=== PATIENT | female | born 2000 | race Caucasian/White ===

== ENCOUNTER 2020-06-18 18:39 | Emergency (ER) | payer BC ==
[2020-06-18] MEDS ORDERED: Ondansetron 4 MG/2 ML SDV IVPUSH ONE ×2 (19:02→20:51)
[2020-06-18] MEDS ORDERED: Sodium Chloride 0.9% 1,000 ML IV ONE (19:03)
[2020-06-18 19:30] LABS: ANION GAP 12.1 mmol/L (5-15); CHLORIDE,CL 102 mmol/L (98-107); SODIUM,NA 138 mmol/L (136-145)
[2020-06-18] MEDS ORDERED: HYDROmorphone 1 MG/ML Syringe IVPUSH ONE (19:54)
[2020-06-18] MEDS ORDERED: Clindamycin Phosphate 900 MG/6 ML SDV IV ONE (20:13)
[2020-06-18] MEDS ORDERED: Iopamidol 755 Mg/ML 75 ML Bottle IVPUSH ONE (20:40)
--- NOTE | 2020-06-18 20:41 | EDM.PDOC ---
ED HPI GENERAL MEDICAL PROBLEM - General Chief Complaint: Gastrointestinal Problem Stated Complaint: FEVER/VOMITING Time Seen by Provider: 06/18/20 18:45 Source of Information: Reports: Patient History Limitations: Reports: No Limitations - History of Present Illness INITIAL COMMENTS - FREE TEXT/NARRATIVE: 20-year-old female presents to the emergency room brought in by her mother this evening with complaints of upper abdominal pain, nausea and vomiting. Symptoms have started over the last 48 hours with nausea and vomiting beginning last night and then throughout today. She feels like she is getting no worse. They believe she had run a low-grade fever of 101. They have been treating this with Tylenol and ibuprofen. She describes abdominal pain as a constant ache referred from the right upper quadrant and radiating to the epigastric region. She is otherwise been very healthy. No prior history of abdominal surgery. No medications. Onset: Gradual Onset Date: 06/16/20 Duration: Day(s):, Getting Worse Location: Reports: Abdomen Quality: Reports: Ache Severity: Moderate Improves with: Reports: None Worsens with: Reports: None Associated Symptoms: Reports: Fever/Chills, Nausea/Vomiting Treatments BALANCE WHEEL [employer] FILER: Reports: Acetaminophen, NSAIDS, Other (see below) Middle Abdomen Pain Score (Numeric/FACES): 4 - Related Data Allergies Allergy/AdvReac Type Severity Reaction Status Date / Time Sulfa (Sulfonamide Allergy Mild Cannot Verified 06/18/20 18:55 Antibiotics) Remember amoxicillin Allergy Swollen Verified 06/18/20 18:55 Tongue Home Meds: Home Meds Acetaminophen [Tylenol] 325 mg PO Q4H PRN 06/13/18 [History] Ibuprofen [Ibuprofen Ib] 200 mg PO TID 06/18/20 [History] Past Medical History BREAKFAST HOST History: Reports: Other (See Below) Other BREAKFAST HOST History: pain full menses - will pass out from pain at times - Past Surgical History HEENT Surgical History: Reports: Adenoidectomy, Oral Surgery, Tonsillectomy Social & Family History - Family History Family Medical History: Unobtainable - Tobacco Use Tobacco Use Status *Q: Never Tobacco User - Caffeine Use Caffeine Use: Reports: Coffee, Energy Drinks, Soda Other Caffeine Use: 1 per day - Recreational Drug Use Recreational Drug Use: No ED ROS GENERAL - Review of Systems Review Of Systems: See Below Constitutional: Reports: Fever, Decreased Appetite HEENT: Reports: No Symptoms Respiratory: Reports: No Symptoms Cardiovascular: Reports: No Symptoms Endocrine: Reports: No Symptoms GI/Abdominal: Reports: Abdominal Pain, Diarrhea, Nausea, Vomiting : Denies: Dysuria, Flank Pain, Hematuria, Pain, Urgency Musculoskeletal: Reports: No Symptoms Skin: Reports: No Symptoms Neurological: Reports: No Symptoms ED EXAM, GI/ABD - Physical Exam Exam: See Below Exam Limited By: No Limitations General Appearance: Alert, WD/WN, Mild Distress Eyes: Bilateral: Normal Appearance, EOMI Ears: Hearing Grossly Normal, Normal TMs Nose: Normal Inspection, Normal Mucosa, No Blood Throat/Mouth: Normal Inspection, Normal Lips, Normal Teeth, Normal Oropharynx, Normal Voice, No Airway Compromise Head: Atraumatic, Normocephalic Neck: Normal Inspection, Supple, Non-Tender, Full Range of Motion. No: Lymphadenopathy (L), Lymphadenopathy (R) Respiratory/Chest: No Respiratory Distress, Lungs Clear, Normal Breath Sounds, No Accessory Muscle Use, Chest Non-Tender Cardiovascular: Normal Peripheral Pulses, Regular Rate, Rhythm, No Murmur GI/Abdominal Exam: No Organomegaly, No Distention, No Abnormal Bruit, No Mass, Pelvis Stable, Rebound, Tender, Other (+ [place]) Back Exam: Normal Inspection, Full Range of Motion Extremities: Normal Inspection, Normal Range of Motion, Non-Tender, No Pedal Edema, Normal Capillary Refill Neurological: Alert, Oriented, CN II-XII Intact, No Motor/Sensory Deficits Psychiatric: Normal Affect, Normal Mood Skin Exam: Warm, Dry, Intact, Normal Color, No Rash Course - Vital Signs Last Recorded V/S: Last Vital Signs Temp 101.8 F H 06/18/20 22:38 Pulse 113 H 06/18/20 22:38 Resp 20 06/18/20 22:38 BP 102/61 06/18/20 22:38 Pulse Ox 99 06/18/20 22:38 - Orders/Labs/Meds Orders: Active Orders 24 hr Category Date Time Status CULTURE URINE [RM] Stat Lab 06/18/20 19:50 Ordered Sodium Chloride 0.9% [Normal Saline] 50 ml Med 06/18/20 20:45 Active IV ASDIRECTED Sodium Chloride 0.9% [Saline Flush] Med 06/18/20 20:20 Active 10 ml FLUSH Q8HR PRN Saline Lock Insert [OM.PC] Routine Oth 06/18/20 20:20 Ordered Medication Orders Sodium Chloride (Normal Saline) 50 mls @ 200 mls/hr IV ASDIRECTED AMBROSE Last Admin: 06/18/20 20:47 Dose: 200 mls/hr Documented by: Sodium Chloride (Sodium Chloride 0.9% 10 Ml Syringe) 10 ml FLUSH Q8HR PRN PRN Reason: keep vein open Last Admin: 06/18/20 21:33 Dose: 10 ml Documented by: Labs: Laboratory Tests 06/18/20 06/18/20 06/18/20 Range/Units 19:00 19:00 19:02 WBC 5.06 (5.00-10.00) 10^3/uL RBC 3.89 (3.80-5.50) 10^6/uL Hgb 11.9 L (12.0-16.0) g/dL Hct 35.8 L (37.0-47.0) % MCV 92.0 (82.0-92.0) fL MCH 30.6 (27.0-31.0) pg MCHC 33.2 (32.0-36.0) g/dL RDW 11.9 (11.5-14.5) % Plt Count 135 L (150-400) 10^3/uL MPV 9.4 (7.4-10.4) fL Immature Gran % (Auto) 0.2 (0.0-5.0) % Neut % (Auto) 37.9 L (50.0-70.0) % Lymph % (Auto) 58.1 H (20.0-40.0) % [place] % (Auto) 3.6 (2.0-8.0) % Eos % (Auto) 0.0 L (1.0-3.0) % Baso % (Auto) 0.2 (0.0-1.0) % Neut # (Auto) 1.92 L (2.50-7.00) 10^3/uL Lymph # (Auto) 2.94 (1.00-4.00) 10^3/uL [place] # (Auto) 0.18 (0.10-0.80) 10^3/uL Eos # (Auto) 0.00 L (0.10-0.30) 10^3/uL Baso # (Auto) 0.01 (0.00-0.10) 10^3/uL Immature Gran # (Auto) 0.01 (0.00-0.50) 10^3/uL Sodium 138 (136-145) mmol/L Potassium 3.6 (3.5-5.1) mmol/L Chloride 102 (98-107) mmol/L Carbon Dioxide 27.5 (21.0-32.0) mmol/L Anion Gap 12.1 (5-15) mmol/L BUN 7 (7-18) mg/dL Creatinine 0.72 (0.51-1.17) mg/dL Est Cr Clr Drug Dosing 116.02 mL/min Estimated GFR (MDRD) > 60 mL/min Glucose 92 (70-140) mg/dL Calcium 9.2 (8.7-10.3) mg/dL Total Bilirubin 4.4 H (0.2-1.0) mg/dL AST 246 H (15-37) U/L ALT 202 H (14-63) U/L Alkaline Phosphatase 143 H (46-116) U/L Total Protein 6.9 (6.4-8.2) g/dL Albumin 3.14 L (3.40-5.00) g/dL Specimen Type Urinblad Urine Color Dark yellow H (YELLOW) Urine Appearance Clear (CLEAR) Urine pH 6.5 (5.0-9.0) Ur Specific [place] 1.010 (1.005-1.030) Urine Protein Negative (NEGATIVE) mg/dL Urine Glucose (UA) Negative (NEGATIVE) mg/dL Urine Ketones Trace H (NEGATIVE) mg/dL Urine Occult Blood Negative (NEGATIVE) Urine Nitrite Negative (NEGATIVE) Urine Bilirubin Small H (NEGATIVE) Urine Urobilinogen 2.0 H (0.2-1.0) E.U./dL Ur Leukocyte Esterase Trace H (NEGATIVE) Urine RBC 0-5 (0-5) /HPF Urine WBC 10-20 H (0-5) /HPF Ur Epithelial Cells Moderate H /LPF Urine Bacteria Many H (NONE TO FEW) /HPF Urine HCG, Qual (NEGATIVE) 06/18/20 Range/Units 19:02 WBC (5.00-10.00) 10^3/uL RBC (3.80-5.50) 10^6/uL Hgb (12.0-16.0) g/dL Hct (37.0-47.0) % MCV (82.0-92.0) fL MCH (27.0-31.0) pg MCHC (32.0-36.0) g/dL RDW (11.5-14.5) % Plt Count (150-400) 10^3/uL MPV (7.4-10.4) fL Immature Gran % (Auto) (0.0-5.0) % Neut % (Auto) (50.0-70.0) % Lymph % (Auto) (20.0-40.0) % [place] % (Auto) (2.0-8.0) % Eos % (Auto) (1.0-3.0) % Baso % (Auto) (0.0-1.0) % Neut # (Auto) (2.50-7.00) 10^3/uL Lymph # (Auto) (1.00-4.00) 10^3/uL [place] # (Auto) (0.10-0.80) 10^3/uL Eos # (Auto) (0.10-0.30) 10^3/uL Baso # (Auto) (0.00-0.10) 10^3/uL Immature Gran # (Auto) (0.00-0.50) 10^3/uL Sodium (136-145) mmol/L Potassium (3.5-5.1) mmol/L Chloride (98-107) mmol/L Carbon Dioxide (21.0-32.0) mmol/L Anion Gap (5-15) mmol/L BUN (7-18) mg/dL Creatinine (0.51-1.17) mg/dL Est Cr Clr Drug Dosing mL/min Estimated GFR (MDRD) mL/min Glucose (70-140) mg/dL Calcium (8.7-10.3) mg/dL Total Bilirubin (0.2-1.0) mg/dL AST (15-37) U/L ALT (14-63) U/L Alkaline Phosphatase (46-116) U/L Total Protein (6.4-8.2) g/dL Albumin (3.40-5.00) g/dL Specimen Type Urine Color (YELLOW) Urine Appearance (CLEAR) Urine pH (5.0-9.0) Ur Specific [place] (1.005-1.030) Urine Protein (NEGATIVE) mg/dL Urine Glucose (UA) (NEGATIVE) mg/dL Urine Ketones (NEGATIVE) mg/dL Urine Occult Blood (NEGATIVE) Urine Nitrite (NEGATIVE) Urine Bilirubin (NEGATIVE) Urine Urobilinogen (0.2-1.0) E.U./dL Ur Leukocyte Esterase (NEGATIVE) Urine RBC (0-5) /HPF Urine WBC (0-5) /HPF Ur Epithelial Cells /LPF Urine Bacteria (NONE TO FEW) /HPF Urine HCG, Qual Negative (NEGATIVE) Meds: Medications Generic Name Dose Route Start Last Admin Trade Name [place] PRN Reason Stop Dose Admin Sodium Chloride 50 mls @ 200 mls/hr 06/18/20 20:45 06/18/20 20:47 Normal Saline IV 200 mls/hr ASDIRECTED AMBROSE Administration Sodium Chloride 10 ml 06/18/20 20:20 06/18/20 21:33 Sodium Chloride 0.9% 10 Ml Syringe FLUSH 10 ml Q8HR PRN Administration keep vein open Discontinued Medications Generic Name Dose Route Start Last Admin Trade Name [place] PRN Reason Stop Dose Admin Acetaminophen 1,000 mg 06/18/20 22:32 06/18/20 22:35 Acetaminophen 500 Mg Tab PO 06/18/20 22:33 1,000 mg ONETIME ONE Administration Acetaminophen Confirm 06/18/20 22:32 Acetaminophen 500 Mg Tab Administered 06/18/20 22:33 Dose 1,000 mg .ROUTE .STK-MED ONE Clindamycin Phosphate 900 mg 06/18/20 20:13 06/18/20 21:09 Clindamycin Phosphate 900 Mg/6 Ml Sdv IV 06/18/20 20:14 900 mg ONETIME ONE Administration Hydromorphone HCl 1 mg 06/18/20 19:54 06/18/20 20:02 Hydromorphone 1 Mg/Ml Syringe IVPUSH 06/18/20 19:55 0.5 mg ONETIME ONE Administration Sodium Chloride 1,000 mls @ 999 mls/hr 06/18/20 19:03 06/18/20 19:29 Normal Saline IV 06/18/20 20:03 999 mls/hr .BOLUS ONE Administration Sodium Chloride Confirm 06/18/20 20:53 06/18/20 21:00 Normal Saline Administered 06/18/20 20:54 100 mls/hr Dose Administration 1,000 mls @ as directed .ROUTE .[email or web address].us Iopamidol 75 ml 06/18/20 20:40 06/18/20 20:47 Iopamidol 755 Mg/Ml 75 Ml Bottle IVPUSH 06/18/20 20:41 75 ml ONETIME ONE Administration Metoclopramide HCl 5 mg 06/18/20 21:15 06/18/20 21:20 Metoclopramide 10 Mg/2 Ml Sdv IVPUSH 06/18/20 21:16 5 mg ONETIME ONE Administration Ondansetron HCl 4 mg 06/18/20 19:02 06/18/20 19:29 Ondansetron 4 Mg/2 Ml Sdv IVPUSH 06/18/20 19:03 4 mg ONETIME ONE Administration Ondansetron HCl 4 mg 06/18/20 20:51 06/18/20 20:57 Ondansetron 4 Mg/2 Ml Sdv IVPUSH 06/18/20 20:52 4 mg ONETIME ONE Administration Ondansetron HCl Confirm 06/18/20 20:51 Ondansetron 4 Mg/2 Ml Sdv Administered 06/18/20 20:52 Dose 4 mg .ROUTE .trgt.us - Radiology Interpretation Free Text/Narrative:: CT abdomen pelvis with IV contrast Findings: 8 x 6 x 3 mm solid noncalcified right middle lobe super pleural nodule Mild splenomegaly. Spleen measures 14 x 13 cm. Prominent appearance of the right hepatic lobe seen best on the coronal series 4. This is consistent with either mild hepatomegaly versus Jose's lobe, normal variant. Mild periportal edema as well as a trace amount of fluid adjacent to the inferior tip of the right hepatic lobe. Findings are nonspecific. Cholelithiasis. No evidence of acute cholecystitis. Common bile duct is normal in caliber. Pancreas, adrenal glands, and kidneys are unremarkable. No evidence of urinary tract calculi or obstruction. Numerous visualized mesenteric lymph nodes. No enlargement by size criteria. Findings are nonspecific Uterus and adnexal structures are unremarkable. Trace free fluid in the pelvis within normal physiologic limits for reproductive age female. Urinary bladder is unremarkable. Spondylosis. No acute fracture or compression deformity. Impression: No acute findings in the abdomen or pelvis. Mild hepatomegaly versus Jose's lobe, normal variant of anatomy. Additionally there is trace of free fluid adjacent to the inferior tip of the right hepatic lobe as well as periportal edema. Correlate with LFTs to exclude underlying hepatocellular disease. Mild splenomegaly of uncertain etiology or clinical significance. Cholelithiasis without evidence of acute cholecystitis. Other findings are described above CT Results Date: 06/18/20 CT Results Time: 21:10 - Re-Assessments/Exams Free Text/Narrative Re-Assessment/Exam: 06/18/20 20:37 IV was started in her left hand she was given 1 L normal saline, 4 mg Zofran IV, half a milligram of Dilaudid IV 06/18/20 20:41 Patient reports that her pain has improved significantly with for milligram of IV Dilaudid. She still has some persistent nausea but does not want anything more for it at this time. 06/18/20 22:03 Nausea and vomiting have once returned she was given an additional 5 mg of IV Reglan. Nausea has improved some. Departure - Departure Time of Disposition: 23:32 Disposition: DC/Tfer to Acute Hospital 02 Condition: Fair Clinical Impression: Hepatomegaly with splenomegaly, not elsewhere classified, Vomiting, Elevated LFTs Cholelithiasis Qualifiers: Cholelithiasis location: gallbladder Cholecystitis presence: without cholecystitis Biliary obstruction: with biliary obstruction Qualified Code(s): K80.21 - Calculus of gallbladder without cholecystitis with obstruction - Discharge Information Referrals: Sydney Frank DYE MACHINE OPERATOR [Primary Care Provider] - Forms: ED Department Discharge Sepsis Event Note (ED) - Evaluation Sepsis Screening Result: No Definite Risk - Focused Exam Vital Signs: Vital Signs Temp Temp Temp Pulse Resp BP Pulse Ox 06/18/20 22:38 103 F H 101.8 F H 113 H 20 102/61 99 06/18/20 22:35 103 F H 06/18/20 22:09 111 H 18 103/69 99 06/18/20 21:30 109 H 20 112/72 99 06/18/20 20:39 98.4 F 102 H 118/79 99 06/18/20 20:00 99 18 123/69 99 06/18/20 19:45 88 20 110/69 99 06/18/20 19:30 95 119/87 98 06/18/20 19:10 93 112/77 98 06/18/20 18:51 97.1 F 104 H 16 108/73 97 - My Orders Last 24 Hours: My Active Orders 06/18/20 19:50 CULTURE URINE [RM] Stat 06/18/20 20:20 Sodium Chloride 0.9% [Saline Flush] 10 ml FLUSH Q8HR PRN Saline Lock Insert [OM.PC] Routine 06/18/20 20:45 Sodium Chloride 0.9% [Normal Saline] 50 ml IV ASDIRECTED - Assessment/Plan Last 24 Hours: My Active Orders 06/18/20 19:50 CULTURE URINE [RM] Stat 06/18/20 20:20 Sodium Chloride 0.9% [Saline Flush] 10 ml FLUSH Q8HR PRN Saline Lock Insert [OM.PC] Routine 06/18/20 20:45 Sodium Chloride 0.9% [Normal Saline] 50 ml IV ASDIRECTED Assessment:: 1. Cholelithiasis 2. Elevated LFTs and bilirubin 3. Mild splenomegaly and hepatomegaly 4. Nausea and vomiting Plan: Patient will transfer to [place] [id number] by [facility] ground ambulance. Liter of IV normal saline fluids was given. Second fluids at 100 cc an hour running. Patient was given Zofran and Reglan for nausea. Patient had 0.[address] scan shows cholelithiasis. Lab work shows elevated bilirubin and liver functions. Patient will transfer for possible ERCP and surgical consultation for possible lap skylar. Mother and daughter in agreements with these recommendations. Patient was accepted by [place] [id number] Dr[address] Ritter hospitalist.
[2020-06-18] MEDS ORDERED: Sodium Chloride 0.9% 50 ML IV SCH (20:45)
[2020-06-18] MEDS ORDERED: Ondansetron 4 MG/2 ML SDV ONE (20:51)
[2020-06-18] MEDS: Sodium Chloride 0.9% 10 ML Syringe FLUSH PRN ×2 (20:55→21:33)
[2020-06-18] MEDS: Sodium Chloride 0.9% 1,000 ML ONE ×2 (21:00→21:24)
[2020-06-18] MEDS ORDERED: Sodium Chloride 0.9% 1,000 ML IV SCH (21:00)
[2020-06-18] MEDS ORDERED: Sodium Chloride 0.9% 10 ML SDV IV SCH (21:00)
--- NOTE | 2020-06-18 21:13 | CT ---
[id number] CT/CT Abdomen Pelvis W IV EXAM: CT Abdomen Pelvis W IV CLINICAL DATA: Abdominal pain. COMPARISON STUDY: None. FINDINGS: 8 x 6 x 3 mm solid noncalcified right middle lobe subpleural nodule (series 2 image 8). Mild splenomegaly. Spleen measures 14 x 13 cm. Prominent appearance of the right hepatic lobe seen best on coronal series 4. This is consistent with either mild hepatomegaly versus Jose's lobe, normal variant. Mild periportal edema as well as trace amount of fluid adjacent to the inferior tip of the right hepatic lobe. Findings are nonspecific. Cholelithiasis. No evidence of acute cholecystitis. Common bile duct is normal in caliber. Pancreas, adrenal glands, and kidneys are unremarkable. No evidence of urinary tract calculi or obstruction. Numerous visualized mesenteric lymph nodes. No enlargement by size criteria. Findings are nonspecific. Uterus and adnexal structures are unremarkable. Trace free fluid the pelvis, within normal physiologic limits for reproductive age female. Urinary bladder is unremarkable. Spondylosis. No acute fracture or compression deformity. IMPRESSION: No acute findings in the abdomen or pelvis. Mild hepatomegaly versus Jose's lobe, normal variant of anatomy. Additionally there is trace free fluid adjacent to the inferior tip of the right hepatic lobe as well as periportal edema. Correlate with LFTs to exclude underlying hepatocellular disease. Mild splenomegaly of uncertain etiology or clinical significance. Cholelithiasis without evidence of acute cholecystitis. Other findings are described above. Vic Bhatt MD 06/18/200 Thank you for allowing us to participate in the care of your patient.
[2020-06-18] MEDS ORDERED: Metoclopramide 10 MG/2 ML SDV IVPUSH ONE (21:15)
[2020-06-18] MEDS ORDERED: Acetaminophen 500 MG Tab ONE (22:32)
[2020-06-18] MEDS ORDERED: Acetaminophen 500 MG Tab PO ONE (22:32)
[2020-06-19] MEDS: Sodium Chloride 0.9% 1,000 ML ONE (00:54)
== END 2020-06-18 23:40 ==
LOC: KA.ED 18:39
DX: K80.21 Calculus of gallbladder without cholecystitis with obstruction (principal); R16.2 Hepatomegaly with splenomegaly, not elsewhere classified; Z88.1 Allergy status to other antibiotic agents; Z88.2 Allergy status to sulfonamides
CPT/HCPCS: 36415; 74177; 80053; 81001; 81025; 85025; 87086; 87088; 87186; 96374; 96375; 96376; 99284; 99285-25; A9270-GY; J1170; J2405; J2765; J3490; J7030; Q9967